=== PATIENT | female | born 1985 | race Caucasian/White ===

== ENCOUNTER 2016-09-07 13:08 | Emergency (ER) | payer OTHER ==
[2016-09-07 14:37] LABS: HEMOGLOBIN 14.9 gm/dl (12.3-15.3); RED BLOOD COUNT 4.91 M/UL (4.00-5.10)
[2016-09-07 14:55] LABS: BUN/CREATININE RATIO 18 (0-10)
== END 2016-09-07 16:20 | disposition home or self-care (01) ==
LOC: ER1 13:08
PROVIDERS: Physician Assistant
DX: E11.65 Type 2 diabetes mellitus with hyperglycemia (principal); N39.0 Urinary tract infection, site not specified; F17.200 Nicotine dependence, unspecified, uncomplicated; Z88.0 Allergy status to penicillin
CPT/HCPCS: 36415; 80053; 81001; 82009; 82803; 82962; 85025; 96361; 96374; 99284; J2405

== ENCOUNTER 2020-08-29 19:13 | Emergency (ER) | payer OTHER ==
[~2020-08-29 19:13] MED LIST: BACTRIM DS TAB1 EACH PO; MACROBID 100 M100 MG PO; ZOFRAN4 MG PO
[2020-08-29] MEDS ORDERED: CLINDAMYCIN HC150 MG PO (21:31)
== END 2020-08-29 21:35 | disposition home or self-care (01) ==
LOC: ER1 19:13
DX: K04.7 Periapical abscess without sinus (principal); E11.8 Type 2 diabetes mellitus with unspecified complications; F17.290 Nicotine dependence, other tobacco product, uncomplicated; Z88.0 Allergy status to penicillin
CPT/HCPCS: 99283

== ENCOUNTER 2020-10-10 23:25 | Emergency (ER) | payer OTHER ==
[~2020-10-10 23:25] MED LIST changes: +CLINDAMYCIN HC150 MG PO
[2020-10-11 01:08] LABS: HEMOGLOBIN 15.9 gm/dl (12.3-15.3); RED BLOOD COUNT 4.93 M/UL (4.00-5.10); WHITE BLOOD COUNT 8.5 K/UL (4.5-11.0)
[2020-10-11 01:32] LABS: BUN/CREATININE RATIO 16 (0-10)
== END 2020-10-11 02:25 | disposition home or self-care (01) ==
LOC: ER1 23:25
PROVIDERS: Family Medicine
DX: R07.89 Other chest pain (principal); E10.8 Type 1 diabetes mellitus with unspecified complications; Z88.0 Allergy status to penicillin
CPT/HCPCS: 71045; 80053; 82550; 82553; 83874; 84484; 85025; 85379; 93005; 96374; 96375; 99285; J2270; J2405

== ENCOUNTER 2021-03-16 21:58 | Emergency (ER) | payer OTHER ==
[2021-03-17 00:17] LABS: HEMOGLOBIN 15.5 gm/dl (12.3-15.3); RED BLOOD COUNT 5.04 M/UL (4.00-5.10); WHITE BLOOD COUNT 5.6 K/UL (4.5-11.0)
== END 2021-03-16 22:43 | disposition left against medical advice (07) ==
LOC: ER1 21:58
PROVIDERS: Physician Assistant
DX: U07.1 COVID-19 (principal); E11.22 Type 2 diabetes mellitus with diabetic chronic kidney disease; N18.9 Chronic kidney disease, unspecified; Z90.710 Acquired absence of both cervix and uterus; Z88.0 Allergy status to penicillin; Z79.899 Other long term (current) drug therapy
CPT/HCPCS: 71045; 80053; 85025; 99285; U0002